=== PATIENT | female | born 1970 | race Caucasian/White ===

== ENCOUNTER 2018-01-09 16:40 | Emergency (ER) | payer OTHER ==
[~2018-01-09] VITALS: Ht 180.3 cm; Wt 101.9 kg
[2018-01-09 16:44] VITALS: BP 189/98; PULSE 93; RESP 16; TEMP 98.5; O2SAT 98
[2018-01-09] MEDS ORDERED: VENTAER INH (16:58)
[2018-01-09] MEDS ORDERED: OLOP1DRO2 EACH EYE (16:58)
[2018-01-09] MEDS ORDERED: CLAR5TAB9 PO (16:58)
[2018-01-09] MEDS ORDERED: AZIT250T3 PO (16:58)
[2018-01-09] MEDS ORDERED: OXYM30SP8 (16:58)
[2018-01-09] MEDS ORDERED: FLUO.25%O EACH EYE (17:35)
--- NOTE | 2018-01-09 17:35 | PD ---
HPI Chief Complaint: Allergic/Adverse Reaction Time Seen by Provider: 17:05 Travel History International Travel<30 days: No Contact w/Intl Traveler<30days: No Traveled to known affect area: No History of Present Illness HPI 47 years old female complains of eye redness and photophobia. Patient states that the symptoms started a week ago. Patient was seen at local walk-in clinic and given antihistamine eyedrops and oral antihistamine. Patient states that the symptoms got better for one day and get worse again since then. Patient was seen by ENT and was told that she does not have a sinus infection. Patient was given prescription for Z-Luis Armando. Patient states that she has occasional cloudiness of the vision in the morning and he got better after that. Patient states that she has increased in pain and redness in the eye today. Patient states the pain is sharp pain bilateral eyes. Patient states that she has increasing light sensitivity for the past week. Patient denies any fever chills. Patient states that she has mild dry cough. Patient states that she has mild sore throat. Patient denies any chest pain or shortness of breath. Patient denies abdominal pain. Patient denies any nausea vomiting diarrhea. PFSH Past Medical History Hypertension: Yes (NON-MEDICATED) Tetanus Vaccination: > 5 Years Influenza Vaccination: No ?: Not LMP: NOW Social History Alcohol Use: Yes (SOCIAL) Tobacco Use: No Substance Use: No Allergies-Medications (Allergen,Severity, Reaction): Coded Allergies: Penicillins (Verified Allergy, Unknown, 01/09/18) Reported Meds & Prescriptions Reported Meds & Active Scripts Active Reported Claritin-D 12 HR (Loratadine-Pseudoephedrine 12 HR) 5-120 Mg Tab 1 Tab PO BID Nasal [place] (Oxymetazoline HCl) 0.05 % Spr Ventolin Hfa 18 GM Inh (Albuterol Sulfate) 90 Mcg/Act Aer 1 Puff INH Q4H PRN Olopatadine Opth Drops (Olopatadine HCl) 0.1 % Drops 1 Drop EACH EYE BID Azithromycin 250 Mg Tab 250 Mg PO DIRECTED Take 2 tabs (500 mg) on day 1 then 1 tab daily x 4 days. Review of Systems General / Constitutional: No: Fever Eyes: Positive: Blurred Vision, Photophobia, Redness, Pain, No: Visual changes HENT: No: Headaches Cardiovascular: No: Chest Pain or Discomfort Respiratory: No: Shortness of Breath Gastrointestinal: No: Abdominal Pain Genitourinary: No: Dysuria Musculoskeletal: No: Pain Skin: No Rash Neurologic: No: Weakness Psychiatric: No: Depression Endocrine: No: Polydipsia Hematologic/Lymphatic: No: Easy Bruising Physical Exam Narrative GENERAL: Well-nourished, well-developed patient. SKIN: Focused skin assessment warm/dry. HEAD: Normocephalic. EYES: Bilateral conjunctival injection. Redness involved both eyes with conjunctival edema. Pupils 1.5 mm equal reactive. Patient has mild photophobia. Both eyes stained with fluoresceins stain reviews no uptake. NECK: Supple, trachea midline. No JVD or lymphadenopathy. CARDIOVASCULAR: Regular rate and rhythm without murmurs, gallops, or rubs. RESPIRATORY: Breath sounds equal bilaterally. No accessory muscle use. GASTROINTESTINAL: Abdomen soft, non-tender, nondistended. MUSCULOSKELETAL: No cyanosis, or edema. BACK: Nontender without obvious deformity. No CVA tenderness. Neurologic exam normal. Data Data Last Documented VS Vital Signs Date Time Temp Pulse Resp B/P (MAP) Pulse Ox O2 Delivery O2 Flow Rate FiO2 01/09/18 16:54 Room Air 01/09/18 16:44 98.5 93 16 189/98 [phone] MDM Medical Decision Making Medical Screen Exam Complete: Yes Emergency Medical Condition: Yes Differential Diagnosis Differential diagnosis including conjunctivitis, viral keratitis, corneal abrasion, corneal ulcer, uveitis, iritis. Narrative Course 47 years old female with redness and edema bilateral eyes. Diagnosis Primary Impression: Viral conjunctivitis of both eyes Patient Instructions: General Instructions Additional Instructions: Stop the antihistamine eyedrop. FML eyedrop as directed. Follow-up with cryptographic machine operator in a.m. Patient was referred to Dr. Bolaños for follow-up. Med/Other Pt SpecificInfo: Prescription(s) given Scripts Fluorometholone Opth Drops (Fml Forte Opth Drops) 0.25% Susp 1 DROP EACH EYE BID for Inflammation, #1 BOTTLE 0 Refills Prov: Delroy Johnson MD 01/09/18 Disposition: 01 DISCHARGE HOME Condition: Stable Delroy Johnson MD Jan 09, 2018 17:35
== END 2018-01-09 17:46 | disposition home or self-care (01) ==
LOC: PHED 16:40
DX: B30.9 Viral conjunctivitis, unspecified (principal); H53.143 Visual discomfort, bilateral; J02.9 Acute pharyngitis, unspecified; I10 Essential (primary) hypertension; Z88.0 Allergy status to penicillin
CPT/HCPCS: 99283